=== PATIENT | male | born 1995 | race Caucasian/White ===

== ENCOUNTER 2017-02-16 18:57 | Emergency (ER) | payer BC, OTHER ==
[2017-02-16 19:03] VITALS: RESP 18
--- NOTE | 2017-02-16 19:20 | ED ---
General Adult HPI - General Chief complaint: Head Injury Stated complaint: poss concussion Time Seen by Provider: 02/16/17 19:00 Source: patient, RN notes reviewed Mode of arrival: ambulatory Limitations: no limitations - History of Present Illness Initial comments: This is a 21-year-old male who states this morning at 11 AM he fell off a 13 foot landed on his left side and then hit his head off the wooden deck. Patient states since that times in a mild headache and he is also felt as though he cannot concentrate. No symptoms continued for the patient decided come in and be evaluated. Patient denies any nausea vomiting. Patient denies losing consciousness. Patient states he was dazed after hit his head. Patient denies any numbness or weakness. He does have some slight posterior neck pain. Patient does state he has full range of motion of his neck. Patient denies any other injury from the fall. He denies any upper scapular 70 pain. Patient denies chest pain or back pain. - Related Data Home Medications Medication Instructions Recorded Confirmed No Known Home Medications [No 04/28/15 02/16/17 Known Home Medications] Allergies Allergy/AdvReac Type Severity Reaction Status Date / Time No Known Allergies Allergy Verified 02/16/17 19:30 Review of Systems ROS Statement: Those systems with pertinent positive or pertinent negative responses have been documented in the HPI. ROS Other: All systems not noted in ROS Statement are negative. Past Medical History Past Medical History: No Reported History Additional Past Medical History / Comment(s): Meningitis when he was 14 History of Any Multi-Drug Resistant Organisms: None Reported Past Surgical History: No Surgical Hx Reported Additional Past Surgical History / Comment(s): wisdom teeth Past Psychological History: No Psychological Hx Reported Smoking Status: Never smoker Past Alcohol Use History: None Reported Past Drug Use History: None Reported General Exam - General Exam Comments Initial Comments: GENERAL: Patient is well-developed and well-nourished. Patient is nontoxic and well- hydrated and is in mild distress. ENT: Neck is soft and supple. No significant lymphadenopathy is noted. Oropharynx is clear. Moist mucous membranes. Neck has full range of motion without eliciting any pain. Patient has some swelling over the right cheek just by the zygomatic arch there is very minimal tenderness in that area. EYES: The sclera were anicteric and conjunctiva were pink and moist. Extraocular movements were intact and pupils were equal round and reactive to light. Eyelids were unremarkable. PULMONARY: Unlabored respirations. Good breath sounds bilaterally. No audible rales rhonchi or wheezing was noted. CARDIOVASCULAR: There is a regular rate and rhythm without any murmurs gallops or rubs. l ABDOMEN: Soft and nontender with normal bowel sounds. No palpable organomegaly was noted. There is no palpable pulsatile mass. SKIN: Skin is clear with no lesions or rashes and otherwise unremarkable. NEUROLOGIC: Patient is alert and oriented x3. Cranial nerves II through XII are grossly intact. Motor and sensory are also intact. Normal speech, volume and content. Symmetrical smile. MUSCULOSKELETAL: Normal extremities with adequate strength and full range of motion. No lower extremity swelling or edema. No calf tenderness. LYMPHATICS: No significant lymphadenopathy is noted PSYCHIATRIC: Normal psychiatric evaluation. Limitations: no limitations Course Vital Signs 02/16/17 18:59 Temperature 97.6 F Pulse Rate 69 Respiratory 18 Rate Blood Pressure 124/73 O2 Sat by Pulse 99 Oximetry Medical Decision Making - Medical Decision Making CT of the head and neck are negative for any acute injury Disposition Clinical Impression: Closed head injury Disposition: HOME SELF-CARE Condition: Good Instructions: Head Injury (ED) Referrals: Luna Guerrero MD [Primary Care Provider] - 1-2 days Time of Disposition: 20:16
--- NOTE | 2017-02-16 20:12 | CT ---
EXAMINATION TYPE: CT brain sushilaine wo con DATE OF EXAM: 02/16/2017 COMPARISON: CT brain April 08, 2006 HISTORY: 13 foot fall onto wooden deck, landing on left side with headache and neck pain. No LOC. CT DLP: 1815.00 mGycm. Automated Exposure Control for Dose Reduction was Utilized. TECHNIQUE: CT scan of the head and cervical spine are performed without contrast. FINDINGS: There is no acute intracranial hemorrhage, mass effect, or midline shift identified. The ventricles and sulci are within normal limits in size. Hanks-white matter differentiation is maintai ernie. The globes are intact and the visualized sinuses are clear. The calvarium is intact. Cervical spine is visualized in its entirety from C1 through upper thoracic levels and demonstrates s atisfactory alignment without evidence of acute fracture or dislocation. Prevertebral soft tissue ap pears within normal limits. The C1-C2 articulation is within normal limits on the coronal images. Ve rtebral body heights and disc space heights are maintained. Spinal canal is preserved. Thyroid gland is within normal limits. Lung apices are clear. IMPRESSION: 1. There is no acute fracture or dislocation evident in the cervical spine. 2. No acute intracranial hemorrhage, mass effect, or midline shift is seen.
[2017-02-16 20:26] VITALS: BP 122/69; PULSE 68; TEMP 97.9
== END 2017-02-16 20:26 | disposition home or self-care (01) ==
LOC: EC 18:57
DX: S09.90XA Unspecified injury of head, initial encounter (principal); M54.2 Cervicalgia; W17.89XA Other fall from one level to another, initial encounter; Y93.89 Activity, other specified
CPT/HCPCS: 70450; 72125; 99283

== ENCOUNTER 2018-07-08 19:16 | Emergency (ER) | payer BC ==
[2018-07-08 19:43] VITALS: BP 133/80; PULSE 72; RESP 18; TEMP 98.7
[2018-07-08] MEDS ORDERED: MORPHINE SULFATE 4 MG/ML SYRINGE IVP STA ×2 (19:50→21:18)
[2018-07-08] MEDS ORDERED: ONDANSETRON 4 MG/2 ML VIAL IVP STA (19:50)
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
--- NOTE | 2018-07-08 20:59 | XR ---
EXAMINATION TYPE: XR ankle complete RT DATE OF EXAM: 07/08/2018 COMPARISON: NONE HISTORY: Pain and injury TECHNIQUE: 3 views. FINDINGS: There is a 2 x 1 cm chip fracture of the posterior malleolus. There is oblique fracture through the d istal fibula. Ankle mortise is widened. There is lateral 5 mm subluxation. There is no dislocation. T here is mild posterior subluxation of the talus. Impression There is fracture of the posterior and lateral malleolus with soft tissue swelling. Posterior talar s ubluxation.
--- NOTE | 2018-07-08 21:01 | XR ---
EXAMINATION TYPE: XR tibia fibula RT DATE OF EXAM: 07/08/2018 COMPARISON: NONE HISTORY: Pain and injury TECHNIQUE: 3 views FINDINGS: There is oblique fracture of the distal shaft of the fibula. There is vertical fracture thr ough the posterior malleolus. Knee joint is intact. IMPRESSION: Fractures of the posterior and lateral malleolus.
== END 2018-07-08 22:17 | disposition home or self-care (01) ==
LOC: EC 19:16
DX: S82.841A Displaced bimalleolar fracture of right lower leg, initial encounter for closed fracture (principal); F17.200 Nicotine dependence, unspecified, uncomplicated; Y04.0XXA Assault by unarmed brawl or fight, initial encounter; Y92.009 Unspecified place in unspecified non-institutional (private) residence as the place of occurrence of the external cause
CPT/HCPCS: 73590; 73610; 99283; 29515; J2270; J2405

== ENCOUNTER → 2018-07-15 | Outpatient (CLI) | payer BC ==
--- NOTE | 2018-07-15 09:20 | CT ---
EXAMINATION TYPE: CT ankle RT wo con DATE OF EXAM: 07/15/2018 COMPARISON: Right ankle x-ray one week ago. HISTORY: Rt ankle fracture CT DLP: 223.2 mGycm Automated exposure control for dose reduction was used. FINDINGS: Overlying splint material is now present. There is redemonstration of oblique mildly displaced fractu re through the distal fibular diaphysis extending into the lateral malleolus with slight posterior se paration and distraction of the distal fracture fragment. This distal fracture fragment has 2-3 small ossific displaced fractures seen best sagittal image 18 inferior to the end of the lateral malleolus . There is comminuted component anteriorly near mortise with small triangular shaped fragment from th e anterior component measuring 8 mm in length sagittal image 16. Oblique minimally displaced fracture through the posterior malleolus is seen best on sagittal image 2 5 with 2.1 cm fracture fragment transversely axial image 41 noted. Medial malleolus is intact. Ankle mortise shows asymmetric lateral widening with asymmetric medial tilting of the inferior talus. There is moderate subcutaneous edema over medial and lateral malleoli remaining present. Distal Achilles tendon is intact. Normal sinus tarsi fat is seen. Plantar fascia is intact. The visua lized hindfoot and midfoot structures show satisfactory articulation without additional fracture. Vis ualized tendons are grossly intact. IMPRESSION: BIMALLEOLAR FRACTURE INVOLVING POSTERIOR LATERAL MALLEOLI WITH MORTISE DISRUPTION AND OSSIFIC FRAGMEN TATION FROM LATERAL MALLEOLUS PRESENT DETAILED ABOVE.
== END | disposition home or self-care (01) ==
LOC: RADCTMAIN 07:59
PROVIDERS: ATTEND Orthopaedic Surgery
DX: S82.841A Displaced bimalleolar fracture of right lower leg, initial encounter for closed fracture (principal)

== ENCOUNTER 2019-06-16 10:06 | Emergency (ER) | payer BC ==
[2019-06-16 10:12] VITALS: PULSE 75; TEMP 98
[2019-06-16] MEDS ORDERED: KETOROLAC 30 MG/ML 1 ML VIAL IM STA (10:56)
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
[2019-06-16 11:30] LABS: Appearance,Urine Clear (Clear); Bilirubin,Urine Negative (Negative); Blood,Urine Negative (Negative); Color,Urine Colorless; Glucose,Urine (UA) Negative (Negative); Ketones,Urine Negative (Negative); Leukocyte Esterase,Urine Negative (Negative); Nitrite,Urine Negative (Negative); Protein,Urine Negative (Negative); Specific Gravity,Urine 1.003 (1.001-1.035); Urobilinogen,Urine <2.0 mg/dL (<2.0)
--- NOTE | 2019-06-16 11:34 | XR ---
Left RIBS with chest x-ray HISTORY: Trauma and pain Frontal view of the chest, 4 views of the left ribs submitted. No evident displaced rib fracture. No pneumothorax or pleural effusion. Cardiac mediastinal silhouett e, pulmonary vascularity and mani within normal limits. IMPRESSION: No acute abnormality, if occult fracture is suspected clinically then bone scan may be of benefit.
--- NOTE | 2019-06-16 11:35 | XR ---
Left shoulder HISTORY: Trauma and pain 3 views of the left shoulder Bone mineralization, joint spaces and alignment are maintained. IMPRESSION: No fracture or dislocation.
[2019-06-16 12:36] VITALS: BP 120/78; RESP 16
== END 2019-06-16 12:28 | disposition home or self-care (01) ==
LOC: EC 10:06
DX: S20.212A Contusion of left front wall of thorax, initial encounter (principal); F17.200 Nicotine dependence, unspecified, uncomplicated; Z87.81 Personal history of (healed) traumatic fracture; Z87.09 Personal history of other diseases of the respiratory system; V00.311A Fall from snowboard, initial encounter; Y93.23 Activity, snow (alpine) (downhill) skiing, snowboarding, sledding, tobogganing and snow tubing
CPT/HCPCS: 99284; 96372; 81003; 71101; 73030; J1885

== ENCOUNTER 2022-06-02 12:31 | Emergency (ER) | payer BC ==
[2022-06-02 13:05] VITALS: TEMP 98.4
[2022-06-02] MEDS ORDERED: KETOROLAC 15 MG/ML 1 ML VIAL IVP STA (14:15)
[2022-06-02] MEDS ORDERED: diphenhydrAMINE 50 MG/ML 1 ML VIAL IVP STA (14:15)
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
[2022-06-02 14:46] LABS: Glucose,Whole Blood 93 mg/dL (70-110)
--- NOTE | 2022-06-02 16:17 | CT ---
EXAMINATION TYPE: CT brain wo con CT DLP: 1139.4 mGycm, Automated exposure control for dose reduction was used. DATE OF EXAM: 06/02/2022 3:00 PM COMPARISON: CT brain C-spine 02/16/2017. CLINICAL INDICATION:Male, 26 years old with history of Cephalgia with aura, vision changes and dizzin ess TECHNIQUE: Brain: Multiple axial CT images of the brain were obtained without IV contrast. Coronal and sagittal reformats reviewed FINDINGS: Brain: Extra-axial spaces: No abnormal extra-axial fluid collections. Ventricular system: Within normal limits Cerebral parenchyma: No acute intraparenchymal hemorrhage or mass effect. The anderson-white junction is well differentiated. Cerebellum: Unremarkable. Mass effect: No evidence of midline shift. Intracranial vasculature: unremarkable Soft tissues: Normal. Calvarium/osseous structures: No depressed skull fracture. Paranasal sinuses and mastoid air cells: Mild scattered paranasal sinus disease. Visualized orbits: Orbital contents are intact. IMPRESSION: No acute intracranial process.
[2022-06-02 16:20] VITALS: BP 129/82; PULSE 62; RESP 18
== END 2022-06-02 16:20 | disposition home or self-care (01) ==
LOC: EC 12:31
DX: H70.10 Chronic mastoiditis, unspecified ear (principal); F12.90 Cannabis use, unspecified, uncomplicated; R51.9 Headache, unspecified
CPT/HCPCS: 36415; 70450; 99284; 96374; 96375; J1200; J1885

== ENCOUNTER → 2022-06-10 | Outpatient (CLI) | payer BC ==
--- NOTE | 2022-06-10 12:10 | XR ---
EXAMINATION TYPE: XR ribs bilat w pa chest xray DATE OF EXAM: 06/10/2022 COMPARISON: 06/16/2019 HISTORY: Pain. TECHNIQUE: Frontal view of the chest and bilateral views of the ribs are submitted FINDINGS: Lungs are clear. No pleural effusion or pneumothorax. No focal pneumonia. Heart size normal. Osseous structures intact with no acute displaced rib fractures. IMPRESSION: No acute displaced rib fracture.
== END | disposition home or self-care (01) ==
LOC: RADXRYALE 11:48
PROVIDERS: ATTEND Internal Medicine
DX: R07.82 Intercostal pain (principal)
CPT/HCPCS: 71111